=== PATIENT | female | born 1990 | race Caucasian/White ===

== ENCOUNTER 2018-11-08 22:09 | Emergency (ER) | payer SELFPAY ==
[~2018-11-08] VITALS: Ht 165.1 cm; Wt 81.8 kg
[~2018-11-08 22:09] MED LIST: HYDROCODON-ACE1 EAC7 PO; IBUPROFEN600 MG PO; PRENATAL COMPLE1 TAB PO; VIBRAMYCIN 100100 MG PO
[2018-11-08 22:23] VITALS: Ht 165.1 cm; Wt 81.8 kg
[2018-11-08] MEDS ORDERED: KEPPRA500 MG PO (22:54)
[2018-11-08] MEDS ORDERED: MUPIROCIN22 GM TOPICAL (22:54)
[2018-11-08 23:21] VITALS: BP 132/79
== END 2018-11-08 23:21 | disposition home or self-care (01) ==
LOC: D.ER 22:09
DX: G40.409 Other generalized epilepsy and epileptic syndromes, not intractable, without status epilepticus (principal); L01.00 Impetigo, unspecified

== ENCOUNTER 2019-03-21 09:00 | Emergency (ER) | payer SELFPAY ==
[~2019-03-21] VITALS: Ht 165.1 cm; Wt 81.8 kg
[~2019-03-21 09:00] MED LIST changes: +KEPPRA500 MG PO; +MUPIROCIN22 GM TOPICAL
[2019-03-21 09:10] VITALS: Ht 165.1 cm; Wt 81.8 kg
[2019-03-21 09:36] LABS: BASOPHILS 0.2 % (0-2); EOSINOPHILS 3.6 % (0-7); HEMATOCRIT 41.8 % (36.0-48.0); HEMOGLOBIN 13.7 g/dL (12-16); IMMATURE GRANULOCYTES 0.2 % (0-5); LYMPHOCYTES 30.3 % (15-50); MCH 28.9 pg (26.0-34.0); MCHC 32.8 g/dL (31.0-37.0); MCV 88.2 fL (80.0-100.0); MONOCYTES 7.1 % (2-11); NEUTROPHILS 58.6 % (40-80); RBC 4.74 10x6/uL (4.00-5.40); RDW 13.1 % (11.5-14.5); WBC 6.6 10x3/uL (4.8-10.8)
[2019-03-21 09:46] LABS: ALBUMIN 3.6 g/dL (3.4-5.0); ANION GAP 8.7 mmol/L (8-16); BILIRUBIN - TOTAL 0.29 mg/dL (0.2-1.3); CALCIUM 9.1 mg/dL (8.5-10.1); CARBON DIOXIDE 31.9 mmol/L (21.0-32.0); POTASSIUM - SERUM 3.6 mmol/L (3.5-5.1); PROTEIN - SERUM 7.2 g/dL (6.4-8.2)
[2019-03-21 09:49] LABS: PLATELET COUNT 298 10x3/uL (130-400)
[2019-03-21 09:51] LABS: APPEARANCE HAZY (CLEAR); COLOR YELLOW (YELLOW); SPECIFIC GRAVITY 1.025 (1.005-1.020)
[2019-03-21 09:52] LABS: BILIRUBIN NEGATIVE (NEGATIVE); GLUCOSE NEGATIVE (NEGATIVE); KETONE NEGATIVE (NEGATIVE); NITRITE NEGATIVE (NEGATIVE); PROTEIN NEGATIVE (NEGATIVE); UROBILINOGEN NORMAL (NORMAL)
[2019-03-21 09:57] LABS: HCG URINE NEGATIVE (NEGATIVE)
[2019-03-21] MEDS ORDERED: CYCLOBENZAPRINE10 MG PO (11:44)
[2019-03-21] MEDS ORDERED: ACETAMINOPHEN500 M1 PO (11:44)
[2019-03-21] MEDS ORDERED: IBUPROFEN800 MG PO (11:44)
[2019-03-21 12:36] VITALS: BP 102/65
== END 2019-03-21 12:37 | disposition home or self-care (01) ==
LOC: D.ER 09:00
PROVIDERS: Family Medicine
DX: R10.9 Unspecified abdominal pain (principal); M54.5 Low back pain

== ENCOUNTER 2020-06-24 04:36 | Emergency (ER) | payer SELFPAY ==
[~2020-06-24 04:36] MED LIST changes: +ACETAMINOPHEN500 M1 PO; +CYCLOBENZAPRINE10 MG PO; +IBUPROFEN800 MG PO
== END 2020-06-24 05:17 | disposition left against medical advice (07) ==
LOC: D.ER 04:36
DX: Z20.2 Contact with and (suspected) exposure to infections with a predominantly sexual mode of transmission (principal)